=== PATIENT | male | born 1965 | race Caucasian/White ===

== ENCOUNTER 2019-02-27 05:22 | Inpatient (IN) ==
[2019-02-27] MEDS ORDERED: KETOROLAC 60 MG/2 ML VIAL IM STA (06:55)
[2019-02-27] MEDS ORDERED: KETOROLAC 60 MG/2 ML VIAL IM ONE (07:07)
[2019-02-27 08:27] LABS: Basophils % 0.4 % (0.0-0.8); Eosinophils % 0.6 % (0.00-10.9); Hematocrit 44.7 VOL% (42.0-52.0); Hemoglobin 14.2 GM/DL (14.0-18.0); Immature Granulocytes % 0.3 %; Immature Granulocytes Absolute 0.02 #; Lymphocytes # 1.3 10*3/uL (1.4-4.0); Lymphocytes % 18.2 % (21.2-54.2); Mean Corpuscular HGB Conc 31.8 GM/DL (32-36); Mean Platelet Volume 10.2 FL (9.6-12.0); Monocytes % 10.4 % (1.7-12.7); Neutrophils % 70.1 % (38.7-73.9); Platelet Count 249 T/CUMM (130-400); Red Blood Count 5.14 MC/CUMM (3.8-5.5); Red Cell Distribution Width 12.9 % (9.3-17.3)
[2019-02-27 08:31] LABS: INR 0.9; PT Patient Result 10.2 SECS (9.6-12.2)
[2019-02-27 08:41] LABS: Albumin 4.5 G/DL (3.4-5.0); Bilirubin,Total 0.5 MG/DL (0.2-1.0); Calcium 9.8 MG/DL (8.5-10.1); Osmolality,Calculated 278.5 MOS/KG (273-304); Total Protein 8.6 G/DL (6.4-8.3)
[2019-02-27] MEDS ORDERED: ACETAMINOPHEN 325 MG TABLET PO PRN (09:34)
[2019-02-27] MEDS ORDERED: ONDANSETRON 4 MG/2 ML VIAL IV PRN (09:34)
[2019-02-27] MEDS ORDERED: DOCUSATE SODIUM 100 MG CAPSULE PO PRN (09:34)
[2019-02-27] MEDS: HEPARIN DRIP 25,000 UNITS/500 ML PREMIX IV SCH (09:53)
[2019-02-27] MEDS ORDERED: DIAZEPAM 5 MG TABLET PO ONE (12:07)
[2019-02-27] MEDS ORDERED: MIDAZOLAM 2 MG/2 ML VIAL IV ONE (12:07)
[2019-02-27] MEDS ORDERED: fentaNYL 100 MCG/2 ML VIAL IV ONE (12:07)
[2019-02-27] MEDS: SODIUM CHLORIDE 0.45% 1,000 ML IV SCH (12:21)
[2019-02-27] MEDS ORDERED: HEPARIN/NACL 0.9% 2 UNITS/ML 2,000 ML IV ONE (12:59)
[2019-02-27] MEDS ORDERED: fentaNYL 100 MCG/2 ML VIAL ONE (13:11)
[2019-02-27] MEDS ORDERED: MIDAZOLAM 2 MG/2 ML VIAL ONE (13:11)
[2019-02-27] MEDS ORDERED: ALTEPLASE 24 MG in SODIUM CHLORIDE 0.9% 480 ML IV SCH (14:00)
[2019-02-27] MEDS ORDERED: HEPARIN 5,000 UNIT/1 ML VIAL IV ONE (14:06)
[2019-02-27] MEDS ORDERED: HEPARIN DRIP 25,000 UNITS/500 ML PREMIX IV SCH (15:00)
[2019-02-27 15:26] LABS: PT Patient Result 10.6 SECS (9.6-12.2)
[2019-02-27 15:27] LABS: Partial Thromboplastin Time 50.7 SECS (20.8-36.0)
[2019-02-27] MEDS ORDERED: LISINOPRIL 10 MG TABLET PO ONE (16:05)
[2019-02-27] MEDS: MORPHINE 4 MG/1 ML VIAL IV PRN (21:17)
[2019-02-28 02:59] LABS: Basophils % 0.1 % (0.0-0.8); Eosinophils % 0.5 % (0.00-10.9); Hematocrit 39.7 VOL% (42.0-52.0); Hemoglobin 12.7 GM/DL (14.0-18.0); Immature Granulocytes % 0.2 %; Immature Granulocytes Absolute 0.02 #; Lymphocytes # 1.3 10*3/uL (1.4-4.0); Lymphocytes % 14.7 % (21.2-54.2); Mean Corpuscular Volume 85.6 FL (87-102); Mean Platelet Volume 9.6 FL (9.6-12.0); Neutrophils % 73.5 % (38.7-73.9); Platelet Count 215 T/CUMM (130-400); Red Blood Count 4.64 MC/CUMM (3.8-5.5); Red Cell Distribution Width 13.1 % (9.3-17.3); White Blood Count 8.9 T/CUMM (4-12)
[2019-02-28 03:06] LABS: PT Patient Result 10.6 SECS (9.6-12.2)
[2019-02-28 03:20] LABS: Calcium 9.1 MG/DL (8.5-10.1); Osmolality,Calculated 281.4 MOS/KG (273-304)
[2019-02-28 04:06] LABS: Partial Thromboplastin Time 30.3 SECS (20.8-36.0)
[2019-02-28] MEDS ORDERED: MORPHINE 10 MG/1 ML VIAL ONE (08:22)
[2019-02-28] MEDS: MORPHINE 4 MG/1 ML VIAL IV PRN (08:30)
[2019-02-28] MEDS ORDERED: LISINOPRIL 10 MG TABLET PO SCH (09:00)
[2019-02-28] MEDS ORDERED: NF- (Fluticasone Furoate-Vilanterol [Breo Ellipta] 1 inh) INH SCH (09:00)
[2019-02-28] MEDS: HEPARIN DRIP 25,000 UNITS/500 ML PREMIX IV SCH (09:29)
[2019-02-28] MEDS ORDERED: APIXABAN 5 MG TABLET PO SCH (09:52)
[2019-02-28] MEDS: SODIUM CHLORIDE 0.45% 1,000 ML IV SCH (13:01)
[2019-02-28 13:39] VITALS: BP 141/82
== END 2019-02-28 13:50 | disposition home or self-care (01) | DRG 254 ==
LOC: N.ED 05:22 → SUATTDRO 09:34 → N.EDINP 09:34 → N.ICU 11:40
PROVIDERS: ADMIT Internal Medicine; ATTEND Internal Medicine